=== PATIENT | male | born 1960 | race Caucasian/White ===

== ENCOUNTER → 2017-12-25 | Outpatient (CLI) | payer BC ==
[~2017-12-25] MED LIST: AMLO-110 PO; ATOR10TA82 PO; DUTA0.5C PO; LISI-461 PO
[2017-12-25 18:18] LABS: BLOOD UREA NITROGEN 16 mg/dl (7-18); CREATININE 0.87 mg/dl (0.60-1.40)
== END | disposition home or self-care (01) ==
LOC: C.LABMFLN 15:30
PROVIDERS: ATTEND Urology
DX: R97.20 Elevated prostate specific antigen [PSA] (principal); N40.1 Benign prostatic hyperplasia with lower urinary tract symptoms